=== PATIENT | male | born 1995 | race American Indian/Alaskan Native ===

== ENCOUNTER 2018-01-27 17:16 | Emergency (ER) | payer OTHER ==
[2018-01-27 17:40] VITALS: BP 116/74
[2018-01-27 17:59] LABS: Basophils % (Auto) 0.3 % (0.0-1.8); Eosinophils # (Auto) 0.1 K/mm3 (0.0-0.4); Eosinophils % (Auto) 1.1 % (0.0-4.3); Hematocrit 42.7 % (35.5-45.6); Hemoglobin 15.2 gm/dl (11.8-15.2); Lymphocytes # (Auto) 1.4 K/mm3 (1.2-5.4); Lymphocytes % (Auto) 25.1 % (13.4-35.0); Mean Corpuscular HGB Conc 35 % (32-34); Mean Corpuscular Hemoglobin 28 pg (28-32); Mean Corpuscular Volume 79 fl (84-94); Monocytes # (Auto) 0.8 K/mm3 (0.0-0.8); Monocytes % (Auto) 14.4 % (0.0-7.3); Platelet Count 203 K/mm3 (140-440); Red Cell Distribution Width 13.8 % (13.2-15.2)
[2018-01-27 18:14] LABS: Alanine Aminotransferase 21 units/L (7-56); Albumin 4.2 g/dL (3.9-5); BUN/Creatinine Ratio 13; Blood Urea Nitrogen 12 mg/dL (9-20); Calcium 9.1 mg/dL (8.4-10.2); Hemolysis Index 9
[2018-01-27 19:33] LABS: Bilirubin,Urine NEG (Negative); Blood,Urine SM (Negative); Color,Urine Yellow (Yellow); Protein,Urine <15 mg/dL mg/dL (Negative); Urobilinogen,Urine < 2.0 mg/dL (<2.0)
--- NOTE | 2018-01-27 20:30 | Emergency Department Report ---
Vomiting/Diarrhea - HPI Chief Complaint: Nausea/Vomiting/Diarrhea Stated Complaint: ABDOMINAL PAIN Duration: 1 Day Severity: mild Nausea/Vomiting Severity: None Diarrhea Severity: Moderate Pain Location: Generalized Pain Severity: Mild Symptoms: Yes Watery Diarrhea, Yes Fever (Last night T max 101.), No Bloody diarrhea, No Recent Unusual Foods, No Recent Untreated Water, No Recent use of Antibiotics, No Family w/ Similar Symptoms, No Contacts w/ Similar Symptoms, No Rash, No Hematuria, No Recent URI Symptoms Other History: 22-year-old -Turk[place] male comes in complaining of diarrhea and abdominal cramping 1 day. Patient reports that he had fever last night at 101. Patient has not taken anything for the diarrhea. Last loose stool was about 4:30 this afternoon at home. Patient reports that he went to [facility] and was told to come to the emergency room. Patient reports that the pain is crampy intermittent. He reports that his urine is dark denies any working out or work in the heat. Patient has no past medical history currently takes no medications has no known drug allergies. ED Review of Systems ROS: Stated complaint: ABDOMINAL PAIN Other details as noted in HPI Comment: All other systems reviewed and negative Constitutional: fever (last night 101) Eyes: denies: eye pain, eye discharge, vision change Gastrointestinal: abdominal pain (abdominal cramping), diarrhea. denies: nausea , vomiting Genitourinary: denies: urgency, dysuria Musculoskeletal: denies: back pain, joint swelling, arthralgia Skin: denies: rash, lesions ED Past Medical Hx - Past Medical History Previous Medical History?: No - Surgical History Past Surgical History?: No - Social History Smoking Status: Never Smoker Substance Use Type: None Vomiting Diarrhea Exam - Exam General: Vital signs noted. No distress. Alert and acting appropriately. Lungs: Yes Clear Lung Sounds, Yes Good Air Exchange, No Wheezes, No Stridor, No Cough, No Nasal Flaring, No Retractions, No Use of Accessory Muscles Heart exam: Regular: Yes, Murmur: No, Tachycardia: No Abdomen: Tenderness: Yes, Peritoneal Signs: No, Distention: No, Hyperactive Bowel sounds: Yes Skin exam: Rash: No, Edema: No, Normal turgor: Yes Neurologic: Alert and oriented, no deficits. Musculoskeletal: Unremarkable. ED Course Vital Signs 01/27/18 17:37 Temperature 98.3 F Pulse Rate 83 Respiratory 16 Rate Blood Pressure 116/74 O2 Sat by Pulse 98 Oximetry ED Medical Decision Making - Lab Data Result diagrams: 01/27/18 17:42 01/27/18 17:42 - Medical Decision Making Patient has been evaluated by this provider fast type. Review of labs shows no elevated white count kidney function is within normal limits no elevated LFTs. Urinalysis shows no infection. Urine is clear. We will give patient Imodium 2 mg now as well as 20 mg of Bentyl. Discussed the patient if he has another loose to he may take another dose of Imodium 2 mg in 2 hours. Not to exceed 8 mg in 24 hours. He can follow-up with her primary care provider if symptoms persist or gets worse. Critical care attestation.: If time is entered above; I have spent that time in minutes in the direct care of this critically ill patient, excluding procedure time. ED Disposition Clinical Impression: Gastroenteritis Disposition: DC-01 TO HOME OR SELFCARE Is pt being admited?: No Does the pt Need Aspirin: No Condition: Stable Instructions: Gastroenteritis (ED) Additional Instructions: Please increase her fluid intake. The medication I gave he should stop the cramping as well as to diarrhea. It is consistent have diarrhea he may get over -the-counter Imodium and take another 2 mg in 2 hours. Did not exceed 8 mg in a day. Follow-up with her primary care provider if symptoms persist or gets worse. Referrals: [facility] [Provider Group] - 3-5 Days Forms: Work/School Release Form(ED), Accompanied Note
[2018-01-27] MEDS ORDERED: IMODIUM PO ONE (20:51)
[2018-01-27] MEDS ORDERED: BENTYL ONE (21:05)
[2018-01-27] MEDS ORDERED: BENTYL PO ONE ×2 (21:10→22:03)
== END 2018-01-27 21:22 | disposition home or self-care (01) ==
LOC: ED 17:16
DX: K52.9 Noninfective gastroenteritis and colitis, unspecified (principal)
CPT/HCPCS: 36415; 80053; 81001; 85025; 99283